=== PATIENT | female | born 1980 | race Caucasian/White ===

== ENCOUNTER 2019-05-10 12:43 | Day surgery (SDC) | payer OTHER ==
[~2019-05-10] VITALS: Ht 171.4 cm; Wt 74.5 kg
[~2019-05-10 12:43] MED LIST: ALBU8.5H8 IH; ALBUTEROL SULFATE HFA 90 MCG/PUFF 8 GM INHALER IH ONE; CETI10TA58 PO; FLUO40CA PO; GABA-529 PO; LIDOCAINE/PF 2% 5 ML SYRINGE IVP ONE; MONT10TA21 PO; MONT10TA26 PO; OMEP20CA12 PO; POLY250020 PO; PROPOFOL 1% 20 ML VIAL IVP ONE; SODIUM CHLORIDE 0.9% 1,000 ML IV ONE; SODIUM CHLORIDE 0.9% 1,000 ML ONE; SUCR1TAB PO
[2019-05-10] MEDS ORDERED: HYDR-3422 PO (13:39)
[2019-05-10] MEDS ORDERED: FLUT16H NASAL (13:39)
[2019-05-10] MEDS ORDERED: FLUT110HFA PUFF (13:39)
[2019-05-10] MEDS ORDERED: ALBUTEROL SULFATE 2.5 MG/0.5 ML NEB SOLUTION NEB ONE (14:38)
[2019-05-10] MEDS ORDERED: IPRATROPIUM BROMIDE 0.5 MG/2.5 ML NEB SOLUTION NEB ONE (14:38)
[2019-05-10] MEDS ORDERED: ALBUTEROL SULFATE 2.5 MG/0.5 ML NEB SOLUTION NEB STA (14:46)
[2019-05-10] MEDS ORDERED: IPRATROPIUM BROMIDE 0.5 MG/2.5 ML NEB SOLUTION NEB STA (14:46)
== END 2019-05-10 15:35 | disposition home or self-care (01) ==
LOC: SURGERY 12:43
PROVIDERS: ATTEND Student in an Organized Health Care Education/Training Program
DX: K22.2 Esophageal obstruction (principal); K44.9 Diaphragmatic hernia without obstruction or gangrene; J45.909 Unspecified asthma, uncomplicated; Z91.012 Allergy to eggs; Z91.011 Allergy to milk products; Z88.2 Allergy status to sulfonamides; Z91.018 Allergy to other foods; Z79.899 Other long term (current) drug therapy
CPT/HCPCS: 43249; 43239; 84703; C1769; J2704; J3490; J7030; 88305; J3535